=== PATIENT | male | born 1985 | race Caucasian/White ===

== ENCOUNTER 2022-05-26 15:26 | Emergency (ER) | payer SELFPAY ==
[~2022-05-26] VITALS: Ht 177.8 cm; Wt 103.0 kg
[2022-05-26] MEDS ORDERED: LORAZEPAM 0.5MG TABLET PO ONE (17:15)
[2022-05-26 17:20] VITALS: BP 135/72
== END 2022-05-26 17:51 | disposition home or self-care (01) ==
LOC: ER 15:26
DX: F41.9 Anxiety disorder, unspecified (principal); Z00.00 Encounter for general adult medical examination without abnormal findings
CPT/HCPCS: 93005; 99283